=== PATIENT | male | born 1970 | race Caucasian/White ===

== ENCOUNTER → 2016-07-07 | Outpatient (CLI) | payer OTHER ==
[~2016-07-07] MED LIST: KEPPRA750 MG PO; LAMICTAL PO; LOTREL 5/10 MG1 CAP PO; NORCO 5/325 TAB1 TAB PO; TRILEPTAL PO
== END | disposition home or self-care (01) ==
LOC: CECH 12:30
DX: R01.1 Cardiac murmur, unspecified (principal); I51.7 Cardiomegaly; I50.30 Unspecified diastolic (congestive) heart failure; I35.1 Nonrheumatic aortic (valve) insufficiency; I35.8 Other nonrheumatic aortic valve disorders
CPT/HCPCS: 93306